=== PATIENT | female | born 1945 | race Caucasian/White ===

== ENCOUNTER 2020-05-14 07:50 | Outpatient (CLI) | payer MEDICARE, BC, OTHER ==
[2020-05-15 13:01] LABS: SARS-CoV-2 MS2 Positive; SARS-CoV-2 N Gene Negative; SARS-CoV-2 S Gene Negative; SARS-CoV-2 by NAA Not Detected (NotDetected); SARS-CoV-2 orf1ab Negative
== END 2020-05-14 07:51 | disposition home or self-care (01) ==
LOC: LABBT 07:50
PROVIDERS: ATTEND Dentist Oral and Maxillofacial Surgery
DX: M27.2 Inflammatory conditions of jaws (principal); Z20.828 Contact with and (suspected) exposure to other viral communicable diseases
CPT/HCPCS: 87635; U0003

== ENCOUNTER 2020-05-16 06:51 | Day surgery (SDC) | payer MEDICARE, BC ==
[2020-05-14 12:32] VITALS: BMI 17.5
[2020-05-16] MEDS ORDERED: Dexamethasone 4 mg/ml Vial ONE (07:47)
[2020-05-16] MEDS ORDERED: Bacitracin Zinc Ointment 30 gm TUBE ONE (08:12)
[2020-05-16] MEDS ORDERED: Chlorhexidine Gluconate 15 ML UDCUP SSP ONE (08:13)
[2020-05-16] MEDS ORDERED: Lidocaine 1% w/Epinephrine 1:100K 20 ML VIAL ONE (08:13)
[2020-05-16] MEDS ORDERED: Fentanyl 100 MCG/2 ML VIAL ONE (08:26)
[2020-05-16] MEDS ORDERED: SUGAMMADEX SODIUM 200 MG/2 ML VIAL ONE (08:26)
[2020-05-16] MEDS ORDERED: Dexamethasone 20 MG/5 ML VIAL ONE (10:22)
[2020-05-16] MEDS ORDERED: Rocuronium Bromide 10 MG/ML (10ML VIAL) ONE (10:22)
[2020-05-16] MEDS ORDERED: Glycopyrrolate 0.2 MG/ML 5 ML SYRINGE ONE (10:22)
[2020-05-16] MEDS ORDERED: PROPOFOL 200 MG/20 ML VIAL ONE (10:22)
[2020-05-16] MEDS ORDERED: Lidocaine 1% PF 5 ML VIAL ONE (10:22)
[2020-05-16] MEDS ORDERED: Ketorolac Tromethamine 30 MG/ML VIAL ONE (10:22)
[2020-05-16] MEDS ORDERED: PHENYLEPHRINE-NS 100 MCG/ML 10 ML SYRINGE ONE (10:22)
[2020-05-16] MEDS ORDERED: Ondansetron PF 4 MG/2 ML Vial ONE (10:22)
[2020-05-16] MEDS ORDERED: Morphine 2 MG/ML VIAL ONE (12:33)
--- NOTE | 2020-05-16 14:40 | SPC ---
[facility] CVP LINE PICC INITAL >5: 05/16/2020 2:36 PM INDICATION: Osteomyelitis and need for long-term IV antibiotics PROCEDURE: Peripherally placed 48 cm single lumen PICC line. PICC Line Placement: The left arm was prepped and draped in sterile fashion. One percent lidocaine was used for local anesthetic. Under fluoroscopic and ultrasound guidance, the left basilic vein was patent and accessed with a micr opuncture needle. A guide wire was then advanced into the left basilic vein. A vascular sheath was then advanced over a guide wire, and a single lumen PICC line was trimmed. The PICC line was th en advanced into the central venous system. A final placement film demonstrates the tip of the catheter terminated in the caval-atrial junction. After confirmation of the catheter position, the catheter was sutured in place at the skin entry site . There was no immediate complication. Total fluoroscopic time 0.3 minutes. Total exposure 1065 mgray/sq cm IMPRESSION: Peripheral placement of a single lumen power PICC line into the left basilic vein using fluoroscopic and ultrasound guidance.
--- NOTE | 2020-05-16 14:59 | OP ---
DATE OF PROCEDURE: 05/16/2020 PREOPERATIVE DIAGNOSIS: Osteomyelitis of the left mandibular body. POSTOPERATIVE DIAGNOSIS: Osteomyelitis of the left mandibular body. PROCEDURES PERFORMED: 1. Debridement of left mandibular body. 2. Surgical extraction of tooth #18. ANESTHESIA: General nasoendotracheal anesthesia. 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 Postoperatively, the patient developed an infection in the area requiring a debridement in the clinic and oral antibiotics, although the patient had no significant clinical symptoms. Mild low-grade inflammation was present in the mandible over several weeks with CT findings of cortical disruption of the lingual plate of the left mandibular body consistent with osteomyelitis requiring intervention in the operating room. DESCRIPTION OF PROCEDURE: The patient was met in the preoperative holding area. Risks, benefits, and alternatives of procedure were discussed in detail. Questions were sought and answered. Informed consent was obtained. The patient was transferred to the operating room and to the OR table by Anesthesia Nursing, where a safety belt was secured. ASA monitors were attached and the patient was noted to have stable vital signs. IV induction by Anesthesia with nasoendotracheal intubation without complication. The nasotracheal tube was secured in a standard head wrap fashion. The patient was prepped and draped and a time-out was performed. The procedure began by thoroughly suctioned the oropharynx and moistened Ray-Vandana throat pack was placed. Peridex and toothbrushing were performed intraorally. Approximately 7 mL of 1% lidocaine with 1:100,000 epinephrine was administered as a left inferior alveolar nerve block, left lingual nerve block, left buccal nerve block, and local infiltration along the lingual cortex of the left mandibular body. A 15 blade was used to create a full-thickness mucoperiosteal flap extending from the mandibular incisors on the lingual aspect of the mandible to the #17 position as well as a distal buccal releasing incision and buccal flap elevation from tooth #20 to #17 area. Copious granulation tissue was present within the #19 socket. Purulence was noted coming from the sulcus of tooth #18, which had mobility and necrotic bone on the medial aspect of the root. 703 bur was used to section the roots of tooth #18 and elevator and rongeur extraction was performed. Then, a round bur, rongeur, and curette were used for debridement of the left mandibular body, lingual plate and cortex from the #20 area back to the #17 area consistent with the findings on the CT of the mandible. The necrotic bone was removed. Ostectomy was performed with a round bur to healthy bleeding bone in all sites. Copious irrigation of the wound was performed with normal saline and periosteal release was performed on the buccal flap with a 15 blade and primary closure was obtained using 4-0 chromic interrupted and running sutures. The oropharynx again was irrigated and suctioned. The throat pack was removed. A gauze pack was placed for hemostasis. This concluded the procedure. The patient was extubated in the room and returned to the PACU in stable condition. FLUIDS: See Anesthesia records. BLOOD LOSS: 30 mL. DRAINS: None. SPECIMENS: 1. Culture of purulence from the left mandible. 2. Bony fragments and granulation tissue sent for culture and sensitivity. IMPLANTS: None. DRAINS: None. COUNTS: Needle and sponge count verified as correct. COMPLICATIONS: None. Job ID: [id number]
== END 2020-05-16 15:00 | disposition home or self-care (01) ==
LOC: SDC 06:51
PROVIDERS: ATTEND Dentist Oral and Maxillofacial Surgery
PROC: 0NBV0ZZ Excision of Left Mandible, Open Approach (ICD-10-PCS; principal; 2020-05-16)
PROC: 0CDXXZ0 Extraction of Lower Tooth, Single, External Approach (ICD-10-PCS; 2020-05-16)
PROC: 02HV33Z Insertion of Infusion Device into Superior Vena Cava, Percutaneous Approach (ICD-10-PCS; 2020-05-16)
PROC: B518ZZA Fluoroscopy of Superior Vena Cava, Guidance (ICD-10-PCS; 2020-05-16)
DX: M27.2 Inflammatory conditions of jaws (principal); I10 Essential (primary) hypertension; E78.5 Hyperlipidemia, unspecified; J45.909 Unspecified asthma, uncomplicated; Z79.82 Long term (current) use of aspirin; Z79.899 Other long term (current) drug therapy
CPT/HCPCS: 21025; 36569; 41899; 87070; 87075; 87205; C1751; J2270; 87077; J1100; J1885; J2405; J2704; J3010